=== PATIENT | female | born 1990 | race Caucasian/White ===

== ENCOUNTER → 2020-05-03 14:27 | Outpatient (BNVA) | payer OTHER, SELFPAY | PROVIDERS: PCP Internal Medicine; Visit Provider Advanced Practice Midwife | DX: Z76.89 Persons encountering health services in other specified circumstances (principal) ==

== ENCOUNTER 2020-05-29 13:13 | Outpatient (REF) | payer OTHER, SELFPAY ==
[2020-05-30 12:07] LABS: BV Int Neg Control Negative (Negative); BV Int Pos Control Positive (Positive)
[2020-06-01 18:52] LABS: C. trachomatis RNA TMA NOT DETECTED (NOT DETECTED); N. gonorrhoeae RNA TMA NOT DETECTED (NOT DETECTED)
== END 2020-05-29 13:14 | disposition home or self-care (01) ==
LOC: HO.LAB 13:13
PROVIDERS: PCP Internal Medicine; Visit Provider Advanced Practice Midwife
DX: Z01.419 Encounter for gynecological examination (general) (routine) without abnormal findings (principal); Z20.2 Contact with and (suspected) exposure to infections with a predominantly sexual mode of transmission
CPT/HCPCS: 36415; 87480; 87491; 87510; 87591; 87660

== ENCOUNTER 2020-07-10 12:58 | Emergency (ER) | payer OTHER, SELFPAY ==
--- NOTE | ~2020-07-10 | XR_ITS ---
EXAMINATION: CHEST 1 VIEW CLINICAL INFORMATION: Productive cough. COMPARISON: February 15, 2016. TECHNIQUE: An AP view of the chest is provided. FINDINGS: The cardiac silhouette is not enlarged. The mediastinal and hilar contours are unremarkable. There are neither pleural effusions nor pneumothoraces. There are no consolidations. The osseous structures are stable. XR/XR chest 1V IMPRESSION: No evidence for acute disease.
[2020-07-10 15:14] VITALS: BP 140/68; PULSE 64; RESP 18; TEMP 37.3; O2SAT 100; BMI 30.2
--- NOTE | 2020-07-10 15:48 | ED.GENADULT ---
HPI - General Adult General Chief complaint: General Medical <BERTA Wong - Last Filed: 07/10/20 16:53> Stated complaint: covid symptoms <BERTA Wong - Last Filed: 07/10/20 16:53> Time Seen by Provider: 07/10/20 15:17 <BERTA Wong - Last Filed: 07/10/20 16:53> Source: patient <BERTA Wong - Last Filed: 07/10/20 16:53> Mode of arrival: ambulatory <BERTA Wong - Last Filed: 07/10/20 16:53> Limitations: no limitations <BERTA Wong - Last Filed: 07/10/20 16:53> History of Present Illness HPI narrative: 29 y/o female with history of PCOS, active smoker who presents with 1 day history of nausea, diarrhea and productive cough. She reports last night having fever and chills. Her cough is productive of both yellow and clear phelgm. She denies shortness of breath, wheezing, PACHECO. No abdominal pain. Denies sick contacts. <BERTA Wong - Last Filed: 07/10/20 16:53> MD complaint: flu-like symptoms <BERTA Wong - Last Filed: 07/10/20 16:53> Onset (ago): day(s) (1) <BERTA Wong - Last Filed: 07/10/20 16:53> Location: chest <BERTA Wong Last Filed: 07/10/20 16:53> Radiation: non-radiation <BERTA Wong - Last Filed: 07/10/20 16:53> Severity: moderate <BERTA Wong - Last Filed: 07/10/20 16:53> Exacerbating factors: movement <BERTA Wong - Last Filed: 07/10/20 16:53> Associated symptoms: cough, fever/chills, loss of appetite and nausea/vomiting <BERTA Wong Last Filed: 07/10/20 16:53> Treatments prior to arrival: none <BERTA Wong - Last Filed: 07/10/20 16:53> Related Data Home medications: Home Medications Medication Instructions Recorded Confirmed cholecalciferol (vitamin D3) 50 50 mcg PO DAILY 05/03/20 07/20/20 mcg (2,000 unit) capsule metformin 500 mg tablet,extended 500 mg PO BID 05/03/20 07/20/20 release 24 hr sertraline 100 mg tablet 100 mg PO DAILY 05/03/20 07/20/20 spironolactone 25 mg tablet 25 mg PO BID 05/03/20 07/20/20 Previous Rx's Medication Instructions Recorded norethindrone 1.5 mg-ethinyl 1 tab PO DAILY #84 tab 05/03/20 estradiol 30 mcg(21)/iron 75 mg(7) tablet albuterol sulfate 2 inh INHALATION QID PRN #6.7 g 07/10/20 benzonatate [Tessalon Perles] 100 mg PO TID PRN #14 cap 07/10/20 ondansetron HCl [Zofran] 4 mg PO Q8H PRN #10 tab 07/10/20 atorvastatin 20 mg tablet 20 mg PO DAILY 90 Days #90 tab 07/27/20 <BERTA Wong - Last Filed: 07/10/20 16:53> Allergies/adverse reactions: Allergies Allergy/AdvReac Type Severity Reaction Status Date / Time No Known Allergies Allergy Verified 07/20/20 11:07 <BERTA Wong - Last Filed: 07/10/20 16:53> Review of Systems Review of Systems: Constitutional: + Fever,+ Chills ENT/Mouth: No sore throat, No Rhinorrhea, No Swallowing Difficulty Eyes: No Eye Pain, No Swelling, No Redness Cardiovascular: No Chest Pain, No SOB, No Orthopnea, No Edema Respiratory: + Cough, + Sputum, No Wheezing, No dyspnea Gastrointestinal: + Nausea, No Vomiting, + Diarrhea, No abdominal Pain, No Hematochezia, No Melena Genitourinary: No Dysuria, No Urinary Frequency, No Hematuria Musculoskeletal: No joint pain, No Myalgias Neuro: No Weakness, No Numbness, No Dizziness, + Headache Heme/Lymph: No Lymphadenopathy <BERTA Wong Last Filed: 07/10/20 16:53> [facility] Past Medical History Attestation statement: The following information was validated with the patient. <BERTA Wong - Last Filed: 07/10/20 16:53> Medical History: Medical History Depression Oral contraceptive use PCOS (polycystic ovarian syndrome) PTSD (post-traumatic stress disorder) <BERTA Wong - Last Filed: 07/10/20 16:53> Surgical History: Surgical History No history of previous surgery <BERTA Wong - Last Filed: 07/10/20 16:53> Family History Family History: Family History Mother Diabetes mellitus Father No problems noted. Brother Asthma Brother No problems noted. Brother No problems noted. <BERTA Wong - Last Filed: 07/10/20 16:53> Social History Social History: Social History Alcohol intake: current Alcohol intake frequency: holidays/special occasions only Smoking Status: Never smoker Gender identity: female <BERTA Wong Last Filed: 07/10/20 16:53> Physical Exam Vital Signs: Vital Signs: Last Vital Signs Temp 99.1 F 07/10/20 15:14 Pulse 64 07/10/20 15:14 Resp 18 07/10/20 15:14 BP 140/68 H 07/10/20 15:14 Pulse Ox 100 07/10/20 15:14 Body Mass Index 30.2 Appearance: Alert. Oriented X3. No acute distress. Eyes: Pupils equal, round and reactive to light. ENT: Pharynx normal. Neck: Normal inspection. Neck supple. CVS: Normal heart rate and rhythm. Pulses normal. Respiratory: No respiratory distress. Breath sounds normal. Abdomen: Soft and nontender. +BS x4 Skin: Skin warm and dry. Normal skin color. Normal skin turgor. No rashes. Extremities: No lower extremity edema. Neuro: Oriented X 3. No motor deficit. No sensory deficit. <BERTA Wong Last Filed: 07/10/20 16:53> Vital Signs: Last Vital Signs Temp 99.1 F 07/10/20 15:14 Pulse 64 07/10/20 15:14 Resp 18 07/10/20 15:14 BP 140/68 H 07/10/20 15:14 Pulse Ox 100 07/10/20 15:14 Body Mass Index 30.2 <Chidi Alicia MD - Last Filed: 08/01/20 06:46> Course Course Course Narrative: 29 y/o female presenting with nausea, diarrhea, and productive cough. VS are stable and patient appears well. Will check CXR and COVID/viral swab. <BERTA Wong - Last Filed: 07/10/20 16:53> I have reviewed the chart <Chidi Alicia MD - Last Filed: 08/01/20 06:46> Reevaluation(s) Reevaluation #1: CXR and covid are negative. Likely viral syndrome. Will treat symptomatically and with PO zpak given hx bronchitis. Pt counseled. Stable for d/c. <BERTA Wong - Last Filed: 07/10/20 16:53> Medical Decision Making Lab Data Labs: Lab Results 07/10/20 Range/Units 15:32 Coronavirus (PCR) NEGATIVE (Negative) Influenza Type A (PCR) NEGATIVE (Negative) Influenza Type B (PCR) NEGATIVE (Negative) RSV RNA Qual (PCR) NEGATIVE (Negative) <BERTA Wong - Last Filed: 07/10/20 16:53> Lab Results 07/10/20 Range/Units 15:32 Coronavirus (PCR) NEGATIVE (Negative) Influenza Type A (PCR) NEGATIVE (Negative) Influenza Type B (PCR) NEGATIVE (Negative) RSV RNA Qual (PCR) NEGATIVE (Negative) <Chidi Alicia MD - Last Filed: 08/01/20 06:46> Discharge Plan Discharge Clinical Impression: Acute viral syndrome <BERTA Wong - Last Filed: 07/10/20 16:53> Patient Disposition: Home, Self-Care <BERTA Wong - Last Filed: 07/10/20 16:53> Instructions: Viral Syndrome (ED) <BERTA Wong - Last Filed: 07/10/20 16:53> Additional Instructions: Your chest x-ray did not show any evidence of pneumonia. Your COVID test was negative. Your oxygen levels are normal. Recommend rest, no strenuous activity. Stay hydrated. Recommend over the counter Pepto Bismol and/or Imodium as needed for diarrhea. Take the prescribed medications as directed. Follow up with your doctor this week. If you develop shortness of breath, difficulty breathing or any other concerning symptom come back to the ER for further evaluation. <BERTA Wong - Last Filed: 07/10/20 16:53> Prescriptions: New ondansetron HCl [Zofran] 4 mg tablet 4 mg PO Q8H PRN (Reason: nausea and vomiting) Qty: 10 RF: 0 benzonatate [Tessalon Perles] 100 mg capsule 100 mg PO TID PRN (Reason: cough) Qty: 14 RF: 0 albuterol sulfate 90 mcg/actuation HFA aerosol inhaler 2 inh inhalation QID PRN (Reason: shortness of breath or wheezing) Qty: 6.7 RF: 0 No Action atorvastatin 20 mg tablet 20 mg PO DAILY 90 Days Qty: 90 RF: 3 cholecalciferol (vitamin D3) 50 mcg (2,000 unit) capsule 50 mcg PO DAILY RF: 0 metformin 500 mg tablet extended release 24 hr 500 mg PO BID RF: 0 sertraline 100 mg tablet 100 mg PO DAILY RF: 0 spironolactone 25 mg tablet 25 mg PO BID RF: 0 norethindrone-e.estradiol-iron [Junel FE 1.5/30 (28)] 1.5 mg-30 mcg (21)/75 mg (7) tablet 1 tab PO DAILY Qty: 84 RF: 1 <BERTA Wong - Last Filed: 07/10/20 16:53> Interventions: ED Discharge Assessment Last Done: 07/10/20 16:56 <BERTA Wong - Last Filed: 07/10/20 16:53> Discharge Date/Time: 07/10/20 16:57 <BERTA Wong - Last Filed: 07/10/20 16:53>
[2020-07-10 16:48] LABS: Influenza A PCR NEGATIVE (Negative); Influenza B PCR NEGATIVE (Negative); Resp Syncy Virus RNA Qual PCR NEGATIVE (Negative); SARS COV2 PCR INHOUSE NEGATIVE (Negative)
== END 2020-07-10 16:57 | disposition home or self-care (01) ==
PROVIDERS: Physician Assistant; Emergency Provider Emergency Medicine; PCP Internal Medicine
DX: B34.9 Viral infection, unspecified (principal); Z20.822 Contact with and (suspected) exposure to COVID-19; R50.9 Fever, unspecified; F17.210 Nicotine dependence, cigarettes, uncomplicated; E28.2 Polycystic ovarian syndrome; Z79.899 Other long term (current) drug therapy
CPT/HCPCS: 0241U; 36415; 71045; 99283

== ENCOUNTER → 2020-08-30 11:40 | Outpatient (BNVA) | payer OTHER, SELFPAY | PROVIDERS: PCP Internal Medicine; Visit Provider Internal Medicine Endocrinology, Diabetes & Metabolism ==

== ENCOUNTER 2020-10-09 13:07 | Outpatient (REF) | payer OTHER, SELFPAY ==
[2020-10-10 08:58] LABS: BV Int Neg Control Negative (Negative); BV Int Pos Control Positive (Positive)
[2020-10-10 10:55] LABS: CT PCR NOT DETECTED (Not Detect.); NG PCR NOT DETECTED (Not Detect.)
== END 2020-10-09 13:08 | disposition home or self-care (01) ==
LOC: HO.LAB 13:07
PROVIDERS: PCP Internal Medicine; Visit Provider Advanced Practice Midwife
DX: E28.2 Polycystic ovarian syndrome (principal); F17.200 Nicotine dependence, unspecified, uncomplicated; Z20.2 Contact with and (suspected) exposure to infections with a predominantly sexual mode of transmission; Z79.899 Other long term (current) drug therapy; Z79.84 Long term (current) use of oral hypoglycemic drugs; Z30.41 Encounter for surveillance of contraceptive pills
CPT/HCPCS: 87480; 87491; 87510; 87591; 87660; 99212

== ENCOUNTER 2020-12-03 14:04 | Emergency (ER) | payer OTHER, SELFPAY ==
--- NOTE | ~2020-12-03 | XR_ITS ---
EXAMINATION: XR CHEST CLINICAL INFORMATION: Chest pain. COMPARISON: 07/10/20. 02/15/16. TECHNIQUE: Frontal view of the chest was obtained. FINDINGS: No significant abnormality is noted involving the heart, lungs, mediastinum, bony thorax or soft tissues. XR/XR chest 1V IMPRESSION: Unremarkable examination.
[2020-12-03 14:10] VITALS: BP 134/75; PULSE 58; RESP 18; TEMP 37.2; O2SAT 98; BMI 31.7
--- NOTE | 2020-12-03 14:13 | ECG_ITS ---
Test Reason : CHEST PAIN Blood Pressure : / mmHG Vent. Rate : 058 BPM Atrial Rate : 058 BPM P-R Int : 154 ms QRS Dur : 066 ms QT Int : 420 ms P-R-T Axes : 034 020 022 degrees QTc Int : 412 ms Sinus bradycardia Septal infarct , age undetermined Abnormal ECG No previous ECGs available Referred By: Generic ED Physician Electronically Signed By:Nicholas Romo
[2020-12-03 16:18] LABS: MANUAL DIFF FLAG NO
[2020-12-03 16:19] LABS: Basophils Percent Auto 0.6 % (0-2); Eosinophils Absolute Auto 0.1 X10*3/uL (0.0-0.4); Eosinophils Percent Auto 0.8 % (0-4); Hematocrit 47.4 % (37-47); Hemoglobin 15.7 g/dl (12.0-16.0); Imm Gran Abs Auto 0.02 X10*3/uL (0.00-0.03); Imm Gran Pct Auto 0.3 % (0.0-0.4); Lymphocytes Absolute Auto 2.3 X10*3/uL (1.2-4.9); Lymphocytes Percent Auto 32.3 % (20-40); Mean Corpuscular HGB Conc 33.1 g/dl (31.0-35.0); Mean Corpuscular Hemoglobin 31.8 pg (27.0-33.0); Mean Corpuscular Volume 96.1 fL (80-98); Mean Platelet Volume 9.8 fL (9.4-12.3); Monocytes Absolute Auto 0.4 X10*3/uL (0.1-1.2); Neutrophils Absolute Auto 4.3 X10*3/uL (2.0-8.3); Platelet Count 345 X10*3/uL (160-400); Red Blood Count 4.93 X10*6/uL (4.20-5.50); Red Cell Distribution Width 13.1 % (11.0-16.0); White Blood Count 7.1 X10*3/uL (4.8-10.8)
--- NOTE | 2020-12-03 16:27 | ED_ITS ---
HPI - Chest Pain General Chief Complaint: Chest Pain Stated Complaint: chest pain, headache, weakness Time Seen by Provider: 12/03/20 16:27 Source: patient Mode of arrival: ambulatory Limitations: no limitations History of Present Illness HPI narrative: Patient is smoker been feeling congested for last 2 days coughing mostly dry but sometimes mucopurulent phlegm no fever chills feels chest pain when she coughs no other family member sick complaining of mild headache too Related Data Home Medications Medication Instructions Recorded Confirmed sertraline 100 mg tablet 100 mg PO DAILY 05/03/20 10/09/20 Previous Rx's Medication Instructions Recorded albuterol sulfate 2 inh INHALATION QID PRN #6.7 g 07/10/20 benzonatate [Tessalon Perles] 100 mg PO TID PRN #14 cap 07/10/20 ondansetron HCl [Zofran] 4 mg PO Q8H PRN #10 tab 07/10/20 atorvastatin 20 mg tablet 20 mg PO DAILY 90 Days #90 tab 07/27/20 cholecalciferol (vitamin D3) 50 50 mcg PO DAILY 30 Days #30 cap 08/30/20 mcg (2,000 unit) capsule metformin 500 mg tablet,extended 500 mg PO BID 30 Days #60 tab 08/30/20 release 24 hr spironolactone 25 mg tablet 25 mg PO BID 30 Days #60 tab 08/30/20 norethindrone 1.5 mg-ethinyl 1 tab PO DAILY #84 tab 09/25/20 estradiol 30 mcg(21)/iron 75 mg(7) tablet metronidazole 500 mg tablet 500 mg PO BID 7 Days #14 tab 10/10/20 metronidazole 0.75 % vaginal gel 1 appful VAGINAL BEDTIME 5 Days 10/11/20 #70 g amoxicillin-pot clavulanate 1 tab PO BID #20 tab 12/03/20 [Augmentin] Allergies Allergy/AdvReac Type Severity Reaction Status Date / Time No Known Allergies Allergy Verified 12/03/20 14:09 Review of Systems Review of Systems: Yes all other systems are reviewed and are negative PMFSH Past Medical History Medical History Depression Obesity (BMI 30-39.9) Oral contraceptive use PCOS (polycystic ovarian syndrome) Prediabetes PTSD (post-traumatic stress disorder) Vitamin D deficiency Surgical History No history of previous surgery Family History Family History Mother Diabetes mellitus Father No problems noted. Brother Asthma Brother No problems noted. Brother No problems noted. Social History Social History Alcohol intake: current Alcohol intake frequency: holidays/special occasions only Advance Directives: Yes Advance Directives Information Provided: Yes Advance Directives on File: No Patient : No Gender identity: female Physical Exam Vital Signs: Vital Signs: Last Vital Signs Temp 99.0 F 12/03/20 14:10 Pulse 58 12/03/20 14:10 Resp 18 12/03/20 14:10 BP 134/75 12/03/20 14:10 Pulse Ox 98 12/03/20 14:10 Body Mass Index 31.7 Appearance: Alert. Oriented X3. No acute distress. ENT: Pharynx normal. Oral Mucosa moist nasal turbinates inflamed postnasal drip+ Neck: Normal inspection. Neck supple. CVS: Normal heart rate and rhythm. Pulses normal. Respiratory: No respiratory distress. Equal air entry bilateral, no wheezi ng/rales/rhonchi Abdomen: Soft and nontender. Skin: Skin warm and dry. Normal skin color. Normal skin turgor. Extremities: No lower extremity edema. Neuro: Oriented X 3. MDM - Chest Pain Lab Data Attestation: I reviewed the patient's lab results. Result diagrams: 12/03/20 16:08 12/03/20 16:08 Labs: Lab Results 12/03/20 12/03/20 12/03/20 Range/Units 16:08 16:08 16:08 WBC 7.1 (4.8-10.8) X10*3/uL RBC 4.93 (4.20-5.50) X10*6/uL Hgb 15.7 (12.0-16.0) g/dl Hct 47.4 H (37-47) % MCV 96.1 (80-98) fL MCH 31.8 (27.0-33.0) pg MCHC 33.1 (31.0-35.0) g/dl RDW 13.1 (11.0-16.0) % Plt Count 345 (160-400) X10*3/uL MPV 9.8 (9.4-12.3) fL Immature Gran % (Auto) 0.3 (0.0-0.4) % Neut % (Auto) 60.0 (45-73) % Lymph % (Auto) 32.3 (20-40) % [place] % (Auto) 6.0 (2-11) % Eos % (Auto) 0.8 (0-4) % Baso % (Auto) 0.6 (0-2) % Lymph # (Auto) 2.3 (1.2-4.9) X10*3/uL [place] # (Auto) 0.4 (0.1-1.2) X10*3/uL Eos # (Auto) 0.1 (0.0-0.4) X10*3/uL Baso # (Auto) 0.0 (0.0-0.2) X10*3/uL Abs Immat Gran (auto) 0.02 (0.00-0.03) X10*3/uL Absolute Neuts (auto) 4.3 (2.0-8.3) X10*3/uL Absolute Nucleated RBC 0.000 (0.0-0.012) X10*3/uL Nucleated RBC % (auto) 0.0 (0.0-0.2) /100WBC Sodium 141 (135-145) mmol/L Potassium 4.2 (3.3-5.1) mmol/L Chloride 107 (96-108) mmol/L Carbon Dioxide 25 (22-29) mmol/L Anion Gap 13 (12-20) BUN 11 (9-16) mg/dL Creatinine 0.95 (0.5-1.4) mg/dL Estim Creat Clear Calc 81.6 Estimated GFR > 60 Random Glucose 95 (60-115) mg/dL Calcium 9.9 (8.4-10.2) mg/dL Troponin I High Sens < 3.5 (<3.5-17.0) ng/L S. pyogenes GrpA FRANTZ (Negative) 12/03/20 Range/Units 16:39 WBC (4.8-10.8) X10*3/uL RBC (4.20-5.50) X10*6/uL Hgb (12.0-16.0) g/dl Hct (37-47) % MCV (80-98) fL MCH (27.0-33.0) pg MCHC (31.0-35.0) g/dl RDW (11.0-16.0) % Plt Count (160-400) X10*3/uL MPV (9.4-12.3) fL Immature Gran % (Auto) (0.0-0.4) % Neut % (Auto) (45-73) % Lymph % (Auto) (20-40) % [place] % (Auto) (2-11) % Eos % (Auto) (0-4) % Baso % (Auto) (0-2) % Lymph # (Auto) (1.2-4.9) X10*3/uL [place] # (Auto) (0.1-1.2) X10*3/uL Eos # (Auto) (0.0-0.4) X10*3/uL Baso # (Auto) (0.0-0.2) X10*3/uL Abs Immat Gran (auto) (0.00-0.03) X10*3/uL Absolute Neuts (auto) (2.0-8.3) X10*3/uL Absolute Nucleated RBC (0.0-0.012) X10*3/uL Nucleated RBC % (auto) (0.0-0.2) /100WBC Sodium (135-145) mmol/L Potassium (3.3-5.1) mmol/L Chloride (96-108) mmol/L Carbon Dioxide (22-29) mmol/L Anion Gap (12-20) BUN (9-16) mg/dL Creatinine (0.5-1.4) mg/dL Estim Creat Clear Calc Estimated GFR Random Glucose (60-115) mg/dL Calcium (8.4-10.2) mg/dL Troponin I High Sens (<3.5-17.0) ng/L S. pyogenes GrpA FRANTZ Negative (Negative) Discharge Plan Discharge Clinical Impression: Acute bronchitis Qualifiers: Bronchitis organism: unspecified organism Qualified Code(s): J20.9 - Acute bronchitis, unspecified Patient Disposition: Home, Self-Care Instructions: Acute Bronchitis (ED) Additional Instructions: Take antibiotic as advised. Stop smoking Prescriptions: New amoxicillin-pot clavulanate [Augmentin] 875-125 mg tablet 1 tab PO BID Qty: 20 RF: 0 No Action atorvastatin 20 mg tablet 20 mg PO DAILY 90 Days Qty: 90 RF: 3 norethindrone-e.estradiol-iron [Junel FE 1.5/30 (28)] 1.5 mg-30 mcg (21)/75 mg (7) tablet 1 tab PO DAILY Qty: 84 RF: 1 metronidazole [Flagyl] 500 mg tablet 500 mg PO BID 7 Days Qty: 14 RF: 0 metronidazole [Metrogel Vaginal] 0.75 % gel 1 appful vaginal BEDTIME 5 Days Qty: 70 RF: 0 ondansetron HCl [Zofran] 4 mg tablet 4 mg PO Q8H PRN (Reason: nausea and vomiting) Qty: 10 RF: 0 benzonatate [Tessalon Perles] 100 mg capsule 100 mg PO TID PRN (Reason: cough) Qty: 14 RF: 0 albuterol sulfate 90 mcg/actuation HFA aerosol inhaler 2 inh inhalation QID PRN (Reason: shortness of breath or wheezing) Qty: 6.7 RF: 0 sertraline 100 mg tablet 100 mg PO DAILY RF: 0 metformin 500 mg tablet extended release 24 hr 500 mg PO BID 30 Days Qty: 60 RF: 6 spironolactone 25 mg tablet 25 mg PO BID 30 Days Qty: 60 RF: 6 cholecalciferol (vitamin D3) 50 mcg (2,000 unit) capsule 50 mcg PO DAILY 30 Days Qty: 30 RF: 6
[2020-12-03 16:39] LABS: Anion Gap 13 (12-20); Blood Urea Nitrogen 11 mg/dL (9-16); Calcium 9.9 mg/dL (8.4-10.2); Carbon Dioxide 25 mmol/L (22-29); Chloride 107 mmol/L (96-108); Creatinine Clr Calc Pharmacy 81.6; Estimated Glomerular Filt Rate > 60; Glucose Random 95 mg/dL (60-115); Potassium 4.2 mmol/L (3.3-5.1); Sodium 141 mmol/L (135-145)
[2020-12-03] MEDS: guaiFEN/Codeine SF 200/20/10ML 10 ML LIQUID PO (16:42)
[2020-12-03] MEDS: Amoxicillin/Potassium Clav 875 MG TABLET PO (16:42)
[2020-12-03 16:47] LABS: Troponin-I High Sensitivity < 3.5 ng/L (<3.5-17.0)
[2020-12-03 16:50] LABS: IDNOW Serial# 9DD0AD1C
[2020-12-03 16:51] LABS: Strep A Nucleic Acid Negative (Negative)
== END 2020-12-03 17:06 | disposition home or self-care (01) ==
PROVIDERS: Emergency Provider Internal Medicine; PCP Internal Medicine
DX: J20.9 Acute bronchitis, unspecified (principal); R07.9 Chest pain, unspecified; Z79.899 Other long term (current) drug therapy
CPT/HCPCS: 36415; 71045; 80048; 84484; 85025; 87651; 93005; 99283

== ENCOUNTER 2020-12-04 16:45 | Emergency (ER) | payer OTHER, SELFPAY ==
[2020-12-04 17:54] VITALS: BP 112/68; PULSE 52; RESP 18; TEMP 37.1; O2SAT 100; BMI 30.4
--- NOTE | 2020-12-04 18:18 | ED_ITS ---
HPI - URI/Sore Throat General Chief Complaint: General Medical Stated Complaint: Fever Time Seen by Provider: 12/04/20 17:37 Source: patient Mode of arrival: ambulatory Limitations: no limitations History of Present Illness MD elicited complaint: fever, cough, sore throat, rhinorrhea and nasal congestion Onset (ago): day(s) (4 days ) Consistency: constant and progressively worsening Severity: moderate Description of mucous: clear, watery and yellow Able to tolerate fluids by mouth: Yes Exacerbating factors: swallowing Relieving factors: nothing Associated symptoms: denies other symptoms Treatments prior to arrival: antibiotics (Seen here yesterday and prescribe augmented taking as prescribed) Related Data Home Medications Medication Instructions Recorded Confirmed sertraline 100 mg tablet 100 mg PO DAILY 05/03/20 10/09/20 Previous Rx's Medication Instructions Recorded albuterol sulfate 2 inh INHALATION QID PRN #6.7 g 07/10/20 benzonatate [Tessalon Perles] 100 mg PO TID PRN #14 cap 07/10/20 ondansetron HCl [Zofran] 4 mg PO Q8H PRN #10 tab 07/10/20 atorvastatin 20 mg tablet 20 mg PO DAILY 90 Days #90 tab 07/27/20 cholecalciferol (vitamin D3) 50 50 mcg PO DAILY 30 Days #30 cap 08/30/20 mcg (2,000 unit) capsule metformin 500 mg tablet,extended 500 mg PO BID 30 Days #60 tab 08/30/20 release 24 hr spironolactone 25 mg tablet 25 mg PO BID 30 Days #60 tab 08/30/20 norethindrone 1.5 mg-ethinyl 1 tab PO DAILY #84 tab 09/25/20 estradiol 30 mcg(21)/iron 75 mg(7) tablet metronidazole 500 mg tablet 500 mg PO BID 7 Days #14 tab 10/10/20 metronidazole 0.75 % vaginal gel 1 appful VAGINAL BEDTIME 5 Days 10/11/20 #70 g amoxicillin-pot clavulanate 1 tab PO BID #20 tab 12/03/20 [Augmentin] acetaminophen-codeine 1 tab PO Q8H PRN #10 tab 12/04/20 Allergies Allergy/AdvReac Type Severity Reaction Status Date / Time No Known Allergies Allergy Verified 12/03/20 14:09 Review of Systems Review of Systems: Constitutional : Positive subjective fevers/chi lls/fatigue/malaise ENT/Mouth : Positive sore throat/runny nose Eyes: No Discharge Cardiovascular : No Chest Pain, No SOB Respiratory : Positive Cough, No Sputum, No Wheezing, No Smoke Exposure, No D yspnea Gastrointestinal : No Nausea, No Vomiting, No Diarrhea Genitourinary : No irregular bleeding, No Dysuria, No Urinary Frequency, No Hematuria, No Urinary Incontinence, No Urgency, No Flank Pain, Musculoskeletal : No Myalgia Skin : No rash Neuro : No Headache Yes all other systems are reviewed and are negative [facility] Past Medical History Attestation statement: The following information was validated with the patient. Medical History Depression Obesity (BMI 30-39.9) Oral contraceptive use PCOS (polycystic ovarian syndrome) Prediabetes PTSD (post-traumatic stress disorder) Vitamin D deficiency Surgical History No history of previous surgery Family History Family History Mother Diabetes mellitus Father No problems noted. Brother Asthma Brother No problems noted. Brother No problems noted. Social History Social History Alcohol intake: current Alcohol intake frequency: holidays/special occasions only Advance Directives: No Advance Directives Information Provided: Yes Patient : No Gender identity: female Physical Exam Vital Signs: Vital Signs: Last Vital Signs Temp 98.8 F 12/04/20 17:54 Pulse 52 12/04/20 17:54 Resp 18 12/04/20 17:54 BP 112/68 12/04/20 17:54 Pulse Ox 100 12/04/20 17:54 Body Mass Index 30.4 vital signs have been reviewed as normal and appeared to be correct. Blood pressure normal. Heart rate normal. Respiration rate normal. Temperature normal. Oxygen saturation normal. Appearance: Alert. Oriented X3. No acute distress. Head: Normal external exam. Normocephalic. Atraumatic. Eyes: PERRLA. EOMI. Conjunctiva and sclera normal. Eyelids normal. ENT: EAC normal. TM's Normal. Posterior pharynx mildly erythematous no exudate is noted. Uvula midline. Moist mucous membranes. No trismus noted. No drooling noted. No muffled voice noted. Not consistent with peritonsillar abscess/pharyngeal abscess. Neck: Normal inspection. Neck supple. FROM. No adenopathy. Thyroid Normal. No meningeal signs. No neck mass noted. CVS: Normal heart rate and rhythm. Heart sound normal. Pulses normal throughout. No murmurs/rales/gallops. Respiratory: No respiratory distress. Painless inspiration. Breath sounds normal. No wheezes/rales/rhonchi noted. Chest nontender. No accessory muscle usage noted or decreased air movement noted. Back: Full range of motion noted. No rashes/lesion/induration/fluctuance or signs of infection noted. Skin: Skin warm and dry. Normal skin color. Normal skin turgor. No rashes/lesions/lacerations noted. Extremities: Extremities exhibit normal range of motion. Extremities nontender. Neuro: Oriented X 3. No motor deficit. No sensory deficit. Reflexes normal. Normal steady gait. No focal neuro deficits noted. Vascular: + radial pulses/+ 2 distal pedal pulses/+2 dorsalis pedis b/l. Normal cap refill. No cyanosis noted to upper extremity nails and lower extremity toes nails. Course Course Course Narrative: 30-year-old female presenting to the ED with complaints of URI symptoms for the past 4 days worse today despite being seen yesterday and having a full workup and being placed on Augmentin. Will obtain a repeat rapid strep and swab for COVID/RSV and flu. Treat with Decadron and Tylenol with codeine and instructions to return if any new or worsening symptoms to continue taking the antibiotics as prescribed yesterday. Patient understands agrees with this plan. MDM - URI/Sore Throat Medical Records Attestation: I reviewed the patient's medical records. Lab Data Attestation: I reviewed the patient's lab results. Discharge Plan Discharge Clinical Impression: Upper respiratory infection Patient Disposition: Home, Self-Care Instructions: Upper Respiratory Infection (ED) Additional Instructions: Based on your symptoms and history we have sent a COVID-19. Although your RESULT IS PENDING at this time. RESULTS should return within 2-4 hours. At this time you will be contacted with either NEGATIVE OR POSITIVE results. -Please wait until we contact you for your results. At this time you will be okay for discharge. Please plan for self quarantine for up to 14 days. Do not expose yourself to others. You may not go to work. If testing does come back negative you may return to activities as long as you are no longer having any symptoms for at least 3 days. Please continue to follow cold instructions and wash your hands frequently. You may take Tylenol as directed on the bottle for pain or fever. Patient seen in the emergency department on 12/04/2020 and should be excused from work until negative test results AND until 72 hours without any symptoms AND at least 10 days have passed since symptoms first appeared or since last exposure to COVID-19 positive patient CDC Guidelines for home isolation: - Stay away from others - WEAR A MASK if you are sick AND STAY HOME - Cover your mouth and nose with a tissue when you cough or sneeze. Dispose of tissues in a lined trash can and wash your hands immediately with soap and water for at least 20 seconds. If soap and water are not available, clean hands with alcohol-based hand unit operator that contains at least 60% alcohol. - Clean your hands often with soap and water for at least 20 seconds - Avoid touching your eyes, nose and mouth with unwashed hands - Do not share dishes, drinking glasses, cups, eating utensils, towels, or bedding with other people in your home. After using these items, wash them thoroughly with soap and water or put in the delicatessen slicer. - Clean high-touch surfaces in your isolation area ( sick room and bathroom) every day; let a caregiver clean and disinfect high-touch surfaces in other areas of the home. Clean the area or item with soap and water or another detergent if it is dirty. Then, use a household disinfectant. - Limit contact with pets and animals: If you must care for a pet, wash your hands before and after interacting with them). Prescriptions: New acetaminophen-codeine 300-30 mg tablet 1 tab PO Q8H PRN (Reason: pain) Qty: 10 RF: 0 No Action atorvastatin 20 mg tablet 20 mg PO DAILY 90 Days Qty: 90 RF: 3 norethindrone-e.estradiol-iron [Junel FE .10/15 (28)] 1.5 mg-30 mcg (21)/75 mg (7) tablet 1 tab PO DAILY Qty: 84 RF: 1 metronidazole [Flagyl] 500 mg tablet 500 mg PO BID 7 Days Qty: 14 RF: 0 metronidazole [Metrogel Vaginal] 0.75 % gel 1 appful vaginal BEDTIME 5 Days Qty: 70 RF: 0 ondansetron HCl [Zofran] 4 mg tablet 4 mg PO Q8H PRN (Reason: nausea and vomiting) Qty: 10 RF: 0 benzonatate [Tessalon Perles] 100 mg capsule 100 mg PO TID PRN (Reason: cough) Qty: 14 RF: 0 albuterol sulfate 90 mcg/actuation HFA aerosol inhaler 2 inh inhalation QID PRN (Reason: shortness of breath or wheezing) Qty: 6.7 RF: 0 amoxicillin-pot clavulanate [Augmentin] 875-125 mg tablet 1 tab PO BID Qty: 20 RF: 0 sertraline 100 mg tablet 100 mg PO DAILY RF: 0 metformin 500 mg tablet extended release 24 hr 500 mg PO BID 30 Days Qty: 60 RF: 6 spironolactone 25 mg tablet 25 mg PO BID 30 Days Qty: 60 RF: 6 cholecalciferol (vitamin D3) 50 mcg (2,000 unit) capsule 50 mcg PO DAILY 30 Days Qty: 30 RF: 6 Referrals: Po,Sami Mclaughlin MD [Primary Care Provider] - 2 days Print Language: Yoruba
[2020-12-04] MEDS: dexAMETHasone 2 MG TABLET 10 MG PO (18:26)
[2020-12-04 19:27] LABS: Strep A Nucleic Acid Negative (Negative)
[2020-12-04 20:02] LABS: Influenza A PCR NEGATIVE (Negative); Influenza B PCR NEGATIVE (Negative); Resp Syncy Virus RNA Qual PCR NEGATIVE (Negative); SARS COV2 PCR INHOUSE NEGATIVE (Negative)
== END 2020-12-04 18:33 | disposition home or self-care (01) ==
PROVIDERS: Physician Assistant Medical; Emergency Provider Internal Medicine; PCP Internal Medicine
DX: J06.9 Acute upper respiratory infection, unspecified (principal); Z20.822 Contact with and (suspected) exposure to COVID-19
CPT/HCPCS: 0241U; 36415; 87651; 99283; J8540

== ENCOUNTER 2021-01-23 12:05 | Outpatient (REF) | payer OTHER, SELFPAY ==
[2021-01-23 14:04] LABS: Alanine Aminotransferase 45 U/L (0-31); Albumin Level 4.8 g/dL (3.5-5.0); Alkaline Phosphatase 64 U/L (39-117); Anion Gap 14 (12-20); Aspartate Amino Transferase 24 U/L (5-31); Bilirubin Total 0.8 mg/dL (0.0-1.0); Blood Urea Nitrogen 13 mg/dL (9-16); Calcium 9.9 mg/dL (8.4-10.2); Carbon Dioxide 25 mmol/L (22-29); Chloride 106 mmol/L (96-108); Cholesterol 136 mg/dL; Estimated Glomerular Filt Rate > 60; Glucose Fasting 95 mg/dL (60-99); HDL Cholesterol 40 mg/dL; LDL Cholesterol Calculated 83 mg/dl; Potassium 4.5 mmol/L (3.3-5.1); Sodium 140 mmol/L (135-145); Total Protein 7.1 g/dL (6.5-8.0); Triglycerides 69 mg/dL
[2021-01-27 12:17] LABS: Vitamin D 25-OH, D2 <4 ng/mL; Vitamin D 25-OH, D3 36 ng/mL; Vitamin D 25-OH, Total 36 ng/mL (30-100)
== END 2021-01-23 12:06 | disposition home or self-care (01) ==
LOC: HO.LAB 12:05
PROVIDERS: PCP Internal Medicine; Visit Provider Internal Medicine
DX: E78.5 Hyperlipidemia, unspecified (principal); E55.9 Vitamin D deficiency, unspecified; E28.2 Polycystic ovarian syndrome
CPT/HCPCS: 36415; 80053; 80061; 82306

== ENCOUNTER 2021-05-31 14:03 | Outpatient (REF) | payer MEDICARE, MEDICAID, SELFPAY ==
[2021-06-01 13:14] LABS: CT PCR NOT DETECTED (Not Detect.); NG PCR NOT DETECTED (Not Detect.)
[2021-06-01 14:22] LABS: BV Int Neg Control Negative (Negative); BV Int Pos Control Positive (Positive)
== END 2021-05-31 14:04 | disposition home or self-care (01) ==
LOC: HO.LAB 14:03
PROVIDERS: Visit Provider Advanced Practice Midwife
DX: Z13.89 Encounter for screening for other disorder (principal)
CPT/HCPCS: 87480; 87491; 87510; 87591; 87660; 99212

== ENCOUNTER 2021-05-31 14:51 | Outpatient (REF) | payer MEDICARE, MEDICAID, SELFPAY ==
[2021-06-01 08:22] LABS: HBc Num1 0.08 S/CO (0.00-0.79); HIV AB/AG Nonreactive (Nonreactive); HIV Num 1 0.07 S/CO (0.00-0.99); Hepatitis B Core Antibody Nonreactive (Nonreactive); ~HepC Num1 0.08 S/CO (0.00-0.79); ~Hepatitis C Antibody Nonreactive (Nonreactive)
[2021-06-01 08:32] LABS: Syphilis Screen Nonreactive (Nonreactive)
== END 2021-05-31 14:52 | disposition home or self-care (01) ==
LOC: HO.LAB 14:51
PROVIDERS: PCP Internal Medicine; Visit Provider Advanced Practice Midwife
DX: Z11.4 Encounter for screening for human immunodeficiency virus [HIV] (principal); Z20.2 Contact with and (suspected) exposure to infections with a predominantly sexual mode of transmission
CPT/HCPCS: 36415; 86704; 86780; 86803; 87389; 87480; 87491; 87510; 87591; 87660; 99212

== ENCOUNTER 2021-07-10 18:01 | Emergency (ER) | payer MEDICARE, MEDICAID, SELFPAY ==
--- NOTE | ~2021-07-10 | CT_ITS ---
EXAMINATION: CT ABDOMEN AND PELVIS WITHOUT CONTRAST CLINICAL INFORMATION: Back and flank pain. COMPARISON: Pelvic ultrasound dated from 06/16/2019. Abdominal ultrasound dated from 02/29/2016. CT abdomen dated from 12/26/2015. TECHNIQUE: Multidetector volumetric imaging was performed from the superior aspect of the liver through the pubic symphysis. Sagittal and coronal reformatted images were obtained on the technologist's workstation. This CT examination was performed using dose optimization techniques as appropriate, variously including the following: *Automated exposure control *Adjustment of mA and/or kV according to patient size (this includes techniques or standardized protocols for targeted exams where dose is matched to indication/reason for exam; i.e. extremities or head) *Use of iterative reconstruction technique DLP: 599 mGy-cm FINDINGS: LUNG BASES: The visualized lung bases are unremarkable. LIVER, GALLBLADDER, AND BILIARY TREE: The liver is normal in size, shape, and attenuation. No focal hepatic lesion or biliary ductal dilatation is present. The gallbladder is unremarkable with no evidence of radiopaque gallstones, gallbladder wall thickening, or obvious pericholecystic inflammatory changes. PANCREAS: Unremarkable. SPLEEN: Unremarkable. ADRENAL GLANDS: Unremarkable. KIDNEYS AND URETERS: The kidneys are normal in size, shape, and attenuation. Punctate calculus in the upper pole of the right kidney (4:316). No hydronephrosis or hydroureter. No perinephric stranding. BLADDER: Underdistended limiting assessment of wall thickening. No intraluminal calculi or perivesical fat stranding. GASTROINTESTINAL TRACT: The small and large bowel are unremarkable. The appendix is unremarkable. ABDOMINAL WALL: No significant hernia is appreciated. LYMPH NODES: Normal. VASCULAR: Unremarkable. PELVIC VISCERA: Enlarged but symmetric ovaries, possibly related with history of polycystic ovarian syndrome. 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 No acute or aggressive appearing osseous abnormalities. CT/CT abdomen pelvis wo con IMPRESSION: Punctate calculus in the upper pole of the right kidney without evidence of hydronephrosis. Enlarged ovaries likely related with history of polycystic ovarian syndrome.
[2021-07-10 19:22] VITALS: BP 181/100; PULSE 62; RESP 18; TEMP 36.6; O2SAT 98; BMI 34.0
[2021-07-10 19:38] LABS: MANUAL DIFF FLAG NO
[2021-07-10 19:41] LABS: Basophils Absolute Auto 0.1 X10*3/uL (0.0-0.2); Basophils Percent Auto 0.5 % (0-2); Eosinophils Absolute Auto 0.2 X10*3/uL (0.0-0.4); Eosinophils Percent Auto 1.4 % (0-4); Hematocrit 49.6 % (37.0-47.0); Hemoglobin 16.3 g/dl (12.0-16.0); Imm Gran Abs Auto 0.03 X10*3/uL (0.00-0.03); Imm Gran Pct Auto 0.3 % (0.0-0.4); Lymphocytes Absolute Auto 2.9 X10*3/uL (1.2-4.9); Lymphocytes Percent Auto 27.8 % (20-40); Mean Corpuscular HGB Conc 32.9 g/dl (31.0-35.0); Mean Corpuscular Hemoglobin 31.3 pg (27.0-33.0); Mean Corpuscular Volume 95.2 fL (80.0-98.0); Mean Platelet Volume 9.6 fL (9.4-12.3); Monocytes Percent Auto 9.1 % (2-11); Neutrophils Absolute Auto 6.4 x10*3/uL (2.0-8.3); Neutrophils Percent Auto 60.9 % (45-73); Platelet Count 342 X10*3/uL (160-400); Red Blood Count 5.21 X10*6/uL (4.20-5.50); Red Cell Distribution Width 12.5 % (11.0-16.0); White Blood Count 10.5 X10*3/uL (4.8-10.8)
[2021-07-10 19:42] LABS: Appearance Urine CLEAR; Color Urine YELLOW; Glucose Urine UA NEG (NEG); Leukocyte Esterase Urine TRACE (NEG); Nitrite Urine NEG (NEG); Specific Gravity - Urine 1.025 (1.005-1.025); UACC Culture Trigger YES; Urine Blood NEG (NEG); Urine Ketones NEG (NEG); Urine Protein NEG (NEG-TRACE)
[2021-07-10 19:48] LABS: UPreg QC Valid YES; Urine Pregnancy NEGATIVE (NEGATIVE)
[2021-07-10 19:50] LABS: RBC Urine 0 /HPF (0); Squamous Epithelial Cell Urine 1+ /LPF
[2021-07-10 19:51] LABS: Bacteria Urine TRACE /LPF; Calcium Oxalate Crystals Urine 1+ /LPF
[2021-07-10 19:56] LABS: COVID-19 Test Negative (Negative)
[2021-07-10 19:57] LABS: Alanine Aminotransferase 42 U/L (0-31); Albumin Level 5.1 g/dL (3.5-5.0); Alkaline Phosphatase 63 U/L (39-117); Anion Gap 12 (12-20); Aspartate Amino Transferase 20 U/L (5-31); Bilirubin Total 0.7 mg/dL (0.0-1.0); Blood Urea Nitrogen 8 mg/dL (9-16); Calcium 10.3 mg/dL (8.4-10.2); Carbon Dioxide 29 mmol/L (22-29); Chloride 105 mmol/L (96-108); Creatinine Clr Calc Pharmacy 80.3; Estimated Glomerular Filt Rate > 60; Glucose Random 97 mg/dL (60-115); Potassium 4.4 mmol/L (3.3-5.1); Sodium 142 mmol/L (135-145); Total Protein 8.1 g/dL (6.5-8.0)
--- NOTE | 2021-07-10 20:44 | ED.ABDPAIN ---
HPI - Abdominal Pain General Chief Complaint: Abdominal Pain Stated Complaint: fever/abd pain and weakness Time Seen by Provider: 07/10/21 20:40 Source: patient Mode of arrival: ambulatory Limitations: no limitations History of Present Illness HPI narrative: 29-year-old female past medical history significant for PCOS, hirsutism, hyperandrogenism, active daily smoker presents to emergency department with complaints of subjective fevers, chills, nausea, vomiting, constipation, headache, bilateral flank pain, abdominal pain x3 days. Patient tells me she is unable to keep anything down. She tells me she is vomiting everything she tries to eat or drink. Abdominal pain is diffuse, but mostly to her lower abdomen. No BM in 3 days. Patient also has complaints of bilateral flank/back pain. She tells me this all came on suddenly except the headache. Headache is a boring, dull headache feels like her typical, gradual in onset, no vision changes or dizziness. No head trauma reported. She also reports a thick white she is like vaginal discharge. She tells me she recently completed a treatment of bacterial vaginosis which she was diagnosed by her OBGYN, she took metronidazole intravaginal suppositories. She tells me since then she has been having thick white discharge. No concerns for STDs. She does report urinary frequency, urgency and dysuria. She denies chest pain, shortness of breath, recent sick contacts. MD elicited complaint: abdominal pain Pertinent past history: none Onset (ago): day(s) (3) Pain Consistency: constant Location: diffuse Severity: severe Quality: aching Radiation: none Migration to: no migration Exacerbating factors: nothing Relieving factors: nothing Associated symptoms: nausea, vomiting, fever, chills and constipation Related Data Previous Rx's Medication Instructions Recorded albuterol sulfate 90 mcg/actuation 2 inh INHALATION QID PRN #6.7 g 07/10/20 aerosol inhaler atorvastatin 20 mg tablet 20 mg PO DAILY 90 Days #90 tab 07/27/20 metformin 500 mg tablet,extended 500 mg PO BID 30 Days #60 tab 08/30/20 release 24 hr cholecalciferol (vitamin D3) 50 50 mcg PO DAILY 90 Days #90 cap 01/23/21 mcg (2,000 unit) capsule metronidazole 0.75 % vaginal gel 1 appful VAGINAL BEDTIME 5 Days 07/06/21 (Metrogel Vaginal) #70 g docusate sodium 100 mg capsule 100 mg PO BID #20 cap 07/10/21 (Colace) fluconazole 150 mg tablet 150 mg PO ONCE 1 Days #1 tab 07/10/21 ondansetron 4 mg disintegrating 4 mg PO ONCE PRN #10 tab 07/10/21 tablet sennosides 8.6 mg tablet (senna) 8.6 mg PO BEDTIME #14 tab 07/10/21 Allergies Allergy/AdvReac Type Severity Reaction Status Date / Time No Known Allergies Allergy Verified 07/10/21 19:22 Review of Systems Review of Systems Constitutional : No Weight loss, + Fever, N+o Chills, + Fatigue, + Malaise ENT/Mouth : No sore throat, No Rhinorrhea Eyes: No Eye Pain, No Swelling, No Redness Cardiovascular : No Chest Pain, No SOB, No Dyspnea on Exertion, No Orthopnea, No Edema, No Palpitations Respiratory : No Cough, No Sputum, No Wheezing Gastrointestinal : + Nausea, + Vomiting, No Diarrhea, + Constipation, + abdominal Pain, No Hematochezia, No Melena Genitourinary : + Dysuria, + Urinary Frequency, No Hematuria, Musculoskeletal : + joint pain, No Myalgias, No Joint Swelling Skin : No Skin Lesions, No rash Neuro : No Weakness, No Numbness, No Dizziness, No Headache Psych : No Anxiety/Panic, No Depression All other systems reviewed and are negative Yes all other systems are reviewed and are negative [facility] Past Medical History Attestation statement: The following information was validated with the patient. Source: old records reviewed and nursing notes reviewed Medical History (Updated 07/10/21 @ 22:49 by BERTA Matias) Depression Hyperandrogenism Obesity (BMI 30-39.9) Oral contraceptive use PCOS (polycystic ovarian syndrome) Prediabetes PTSD (post-traumatic stress disorder) Pure hypercholesterolemia Smoking Vitamin D deficiency Surgical History No history of previous surgery Family History Family History Mother Diabetes mellitus Substance use disorder Mental health disorder Father No problems noted. Brother Asthma Brother No problems noted. Brother No problems noted. Social History Social History (Updated 05/31/21 @ 14:10 by DAISY Hernandez Housing: Apartment Alcohol intake: former Patient Tobacco Use Status: Current everyday Tobacco user Tobacco use type: Cigarette Cigarettes Per Day: 2 Years Smoked: 15 e-Cigarette/Vaping Use: Never Used Second Hand Smoke Exposure: No Advance Directives: No Advance Directives Information Provided: No service: No Current occupational status: unemployed Gender identity: Female Physical Exam ED Vital Signs: Vital Signs - 24 hr 07/10/21 19:22 07/10/21 20:46 Temperature 97.8 F 98.3 F Pulse Rate 62 99 Respiratory Rate 18 18 Blood Pressure 181/100 H 141/79 H Pulse Oximetry 98 96 BMI result Body Mass Index 34.0 VSS Appearance: Alert.? Oriented X3.? No acute distress.? Head: Normocephalic, atraumatic, no step-offs or deformities Eyes: Pupils equal, round and reactive to light.? ENT: Pharynx normal.? Neck: Normal inspection.? Neck supple.? CVS: Normal heart rate and rhythm.? Pulses normal.? Respiratory: No respiratory distress.? Breath sounds normal.? Abdomen: Soft and + diffusely tender.? Negative Rovsing, McBurney's point, Robertson's. Skin: Skin warm and dry.? Normal skin color.? Normal skin turgor.? Extremities: No lower extremity edema.? No calf ttp. 5/5 strength to bilateral upper and lower extremities Back: No midline tenderness, no C-spine tenderness, full range of motion, no CVA tenderness bilaterally Neuro: Oriented X 3.? No motor deficit.? No sensory deficit. CN 2-12 intact. Normal [id number], [id number]. Normal tandem gait. Course Reevaluation(s) Reevaluation #1: H&H slightly higher than baseline likely secondary to her dehydration. No leukocytosis. CBC with no acute electrolyte abnormalities. Lipase within normal limits. Unlikely pancreatitis. CT of abdomen and pelvis with punctate colliculus in upper pole of the right kidney without evidence of hydronephrosis. Bilateral enlargement of ovaries likely secondary to PCOS. Flu swab pending at this time. Time: 22:44 Reevaluation #2: Influenza negative. At this time likely viral in origin as patient has body aches, chills, abdominal pain with a negative CT scan. At this time advised patient to return with new or worrisome symptoms out when numb on her discharge. Comfortable with discharge home. Time: 23:22 MDM - Abdominal Pain MDM Narrative Medical decision making narrative: 2108 29 yo f pmhx PCOS, hirsutism, hyperandrogenism, active daily smoker presents to emergency department with complaints of subjective fevers, chills, nausea, vomiting, constipation, headache (feels like typical) bilateral flank pain, abdominal pain x3 days. PE significant for diffuse abdominal tenderness. Normoactive bowel sounds. Patient having chills. No signs of acute abdomen, appendicitis or cholecystitis on exam. Plan- labs, imaging, ua Will rule out kidney stones, obstructing uropathy, cystitis, appendicitis although unlikely. Since patient's headache is described as a typical headache, no vision changes, no red flag symptoms no need for imaging of the head at this time. Neuro exam is also nonfocal which is reassuring. Medical Records Attestation: I reviewed the patient's medical records. Lab Data Attestation: I reviewed the patient's lab results. Result diagrams: 07/10/21 19:33 07/10/21 19:33 Labs: Lab Results 07/10/21 07/10/21 07/10/21 Range/Units 19:31 19:31 19:31 WBC (4.8-10.8) X10*3/uL RBC (4.20-5.50) X10*6/uL Hgb (12.0-16.0) g/dl Hct (37.0-47.0) % MCV (80.0-98.0) fL MCH (27.0-33.0) pg MCHC (31.0-35.0) g/dl RDW (11.0-16.0) % Plt Count (160-400) X10*3/uL MPV (9.4-12.3) fL Immature Gran % (Auto) (0.0-0.4) % Neut % (Auto) (45-73) % Lymph % (Auto) (20-40) % [place] % (Auto) (2-11) % Eos % (Auto) (0-4) % Baso % (Auto) (0-2) % Lymph # (Auto) (1.2-4.9) X10*3/uL [place] # (Auto) (0.1-1.2) X10*3/uL Eos # (Auto) (0.0-0.4) X10*3/uL Baso # (Auto) (0.0-0.2) X10*3/uL Abs Immat Gran (auto) (0.00-0.03) X10*3/uL Absolute Neuts (auto) (2.0-8.3) x10*3/uL Absolute Nucleated RBC (0.0-0.012) X10*3/uL Nucleated RBC % (auto) (0.0-0.2) /100WBC Sodium (135-145) mmol/L Potassium (3.3-5.1) mmol/L Chloride (96-108) mmol/L Carbon Dioxide (22-29) mmol/L Anion Gap (12-20) BUN (9-16) mg/dL Creatinine (0.5-1.4) mg/dL Estim Creat Clear Calc Estimated GFR Random Glucose (60-115) mg/dL Calcium (8.4-10.2) mg/dL Total Bilirubin (0.0-1.0) mg/dL AST (5-31) U/L ALT (0-31) U/L Alkaline Phosphatase (39-117) U/L Total Protein (6.5-8.0) g/dL Albumin (3.5-5.0) g/dL Lipase (8-78) U/L Urine Color YELLOW Urine Appearance CLEAR Urine pH 6.0 (5.0-8.0) Ur Specific [place] 1.025 (1.005-1.025) Urine Protein NEG (NEG-TRACE) MG/DL Urine Glucose (UA) NEG (NEG) MG/DL Urine Ketones NEG (NEG) MG/DL Urine Blood NEG (NEG) Urine Nitrite NEG (NEG) Ur Leukocyte Esterase TRACE H (NEG) Urine RBC 0 (0) /HPF Urine WBC 10-14 H (0-4) /HPF Ur Squamous Epith Cells 1+ /LPF Calcium Oxalate Crystal 1+ /LPF Urine Bacteria TRACE /LPF Urine Test NEGATIVE (NEGATIVE) COVID-19 (WILLIAM) Negative (Negative) COVID-19 Clin Com See Note Influenza Type A (FRANTZ) (Negative) Influenza Type B (FRANTZ) (Negative) Influenza A & B Note 07/10/21 07/10/21 07/10/21 Range/Units 19:33 19:33 22:53 WBC 10.5 (4.8-10.8) X10*3/uL RBC 5.21 (4.20-5.50) X10*6/uL Hgb 16.3 H (12.0-16.0) g/dl Hct 49.6 H (37.0-47.0) % MCV 95.2 (80.0-98.0) fL MCH 31.3 (27.0-33.0) pg MCHC 32.9 (31.0-35.0) g/dl RDW 12.5 (11.0-16.0) % Plt Count 342 (160-400) X10*3/uL MPV 9.6 (9.4-12.3) fL Immature Gran % (Auto) 0.3 (0.0-0.4) % Neut % (Auto) 60.9 (45-73) % Lymph % (Auto) 27.8 (20-40) % [place] % (Auto) 9.1 (2-11) % Eos % (Auto) 1.4 (0-4) % Baso % (Auto) 0.5 (0-2) % Lymph # (Auto) 2.9 (1.2-4.9) X10*3/uL [place] # (Auto) 1.0 (0.1-1.2) X10*3/uL Eos # (Auto) 0.2 (0.0-0.4) X10*3/uL Baso # (Auto) 0.1 (0.0-0.2) X10*3/uL Abs Immat Gran (auto) 0.03 (0.00-0.03) X10*3/uL Absolute Neuts (auto) 6.4 (2.0-8.3) x10*3/uL Absolute Nucleated RBC 0.000 (0.0-0.012) X10*3/uL Nucleated RBC % (auto) 0.0 (0.0-0.2) /100WBC Sodium 142 (135-145) mmol/L Potassium 4.4 (3.3-5.1) mmol/L Chloride 105 (96-108) mmol/L Carbon Dioxide 29 (22-29) mmol/L Anion Gap 12 (12-20) BUN 8 L (9-16) mg/dL Creatinine 1.00 (0.5-1.4) mg/dL Estim Creat Clear Calc 80.3 Estimated GFR > 60 Random Glucose 97 (60-115) mg/dL Calcium 10.3 H (8.4-10.2) mg/dL Total Bilirubin 0.7 (0.0-1.0) mg/dL AST 20 (5-31) U/L ALT 42 H (0-31) U/L Alkaline Phosphatase 63 (39-117) U/L Total Protein 8.1 H (6.5-8.0) g/dL Albumin 5.1 H (3.5-5.0) g/dL Lipase 58 (8-78) U/L Urine Color Urine Appearance Urine pH (5.0-8.0) Ur Specific [place] (1.005-1.025) Urine Protein (NEG-TRACE) MG/DL Urine Glucose (UA) (NEG) MG/DL Urine Ketones (NEG) MG/DL Urine Blood (NEG) Urine Nitrite (NEG) Ur Leukocyte Esterase (NEG) Urine RBC (0) /HPF Urine WBC (0-4) /HPF Ur Squamous Epith Cells /LPF Calcium Oxalate Crystal /LPF Urine Bacteria /LPF Urine Test (NEGATIVE) COVID-19 (WILLIAM) (Negative) COVID-19 Clin Com Influenza Type A (FRANTZ) Negative (Negative) Influenza Type B (FRANTZ) Negative (Negative) Influenza A & B Note See Note Critical Care Time Critical Care Time Critical Care Time: No Discharge Plan Discharge Clinical Impression: Gastroenteritis, Chills, Constipation, Candidiasis of vagina Patient Disposition: Home, Self-Care Instructions: Constipation (ED), Gastroenteritis (ED) Additional Instructions: Take your medications as prescribed. If you were prescribed antibiotics today, it is important that you take your medication to their entirety, do not skip any doses, do not finish them early. Follow-up with your primary care provider this week. Return to the emergency department with new or worsening symptoms. In case of emergency call 911 You were treated here with 1 dose of fluconazole for yeast, take 2nd dose if needed in 2 days. Do not take it tomorrow. Your abdominal CT showed punctate stones which means very small kidney stones. They also showed bilateral enlarged ovaries. Prescriptions: New docusate sodium [Colace] 100 mg capsule 100 mg PO BID Qty: 20 0RF sennosides [senna] 8.6 mg tablet 8.6 mg PO BEDTIME Qty: 14 0RF ondansetron 4 mg tablet,disintegrating 4 mg PO ONCE PRN (Reason: nausea and vomiting) Qty: 10 0RF fluconazole 150 mg tablet 150 mg PO ONCE 1 Days Qty: 1 0RF No Action atorvastatin 20 mg tablet 20 mg PO DAILY 90 Days Qty: 90 3RF metronidazole [Metrogel Vaginal] 0.75 % gel 1 appful vaginal BEDTIME 5 Days Qty: 70 0RF albuterol sulfate 90 mcg/actuation HFA aerosol inhaler 2 inh inhalation QID PRN (Reason: shortness of breath or wheezing) Qty: 6.7 0RF cholecalciferol (vitamin D3) 50 mcg (2,000 unit) capsule 50 mcg PO DAILY 90 Days Qty: 90 1RF metformin 500 mg tablet extended release 24 hr 500 mg PO BID 30 Days Qty: 60 6RF Referrals: Ivette Briones MD [Primary Care Provider] - 2 days Stand Alone Forms: Work/School Release
[2021-07-10 20:46] VITALS: BP 141/79; PULSE 99; RESP 18; TEMP 36.8; O2SAT 96
[2021-07-10 21:56] LABS: Lipase 58 U/L (8-78)
[2021-07-10] MEDS: Fluconazole 150 MG TABLET PO (21:56)
[2021-07-10] MEDS: Ketorolac Tromethamine 15 MG/ML VIAL 30 MG IM (22:58)
[2021-07-10 23:13] LABS: IDNOW Serial# 55D5AD1C; Influenza A Negative (Negative); Influenza B2 Negative (Negative)
== END 2021-07-10 23:35 | disposition home or self-care (01) ==
PROVIDERS: Physician Assistant; Emergency Provider Emergency Medicine Emergency Medical Services; PCP Internal Medicine
DX: K52.9 Noninfective gastroenteritis and colitis, unspecified (principal); B37.3 Candidiasis of vulva and vagina; R68.83 Chills (without fever); K59.00 Constipation, unspecified; F17.200 Nicotine dependence, unspecified, uncomplicated; Z20.822 Contact with and (suspected) exposure to COVID-19
CPT/HCPCS: 74176; 80053; 81001; 81025; 83690; 85025; 87086; 87147; 87502; 87635; 96372; 99284; J1885

== ENCOUNTER 2022-01-17 16:16 | Emergency (ER) | payer MEDICARE, MEDICAID, SELFPAY ==
[2022-01-17 16:47] VITALS: BP 157/68; PULSE 90; RESP 19; TEMP 36.9; O2SAT 98; BMI 34.0
[2022-01-17 17:21] LABS: MANUAL DIFF FLAG NO
[2022-01-17 17:26] LABS: Appearance Urine Clear; Color Urine Yellow; Glucose Urine UA Negative (Negative); Leukocyte Esterase Urine Negative (Negative); Nitrite Urine Negative (Negative); Specific Gravity - Urine >= 1.030 (1.005-1.025); Urine Blood Negative (Negative); Urine Ketones >=80 mg/dL (Negative); Urine Protein Trace mg/dL (Neg-Trace)
[2022-01-17 17:29] LABS: UPreg QC Valid YES; Urine Pregnancy NEGATIVE (NEGATIVE)
[2022-01-17 17:35] LABS: Anion Gap 18 (12-20); Blood Urea Nitrogen 11 mg/dL (9-16); Calcium 9.4 mg/dL (8.4-10.2); Carbon Dioxide 22 mmol/L (22-29); Chloride 105 mmol/L (96-108); Creatinine Clr Calc Pharmacy 85.6; Estimated Glomerular Filt Rate > 60; Glucose Random 102 mg/dL (60-115); Sodium 141 mmol/L (135-145)
[2022-01-17 17:41] LABS: Basophils Percent Auto 0.5 % (0-2); Eosinophils Absolute Auto 0.1 X10*3/uL (0.0-0.4); Eosinophils Percent Auto 0.9 % (0-4); Hematocrit 42.9 % (37.0-47.0); Hemoglobin 14.4 g/dl (12.0-16.0); Imm Gran Abs Auto 0.05 X10*3/uL (0.00-0.03); Imm Gran Pct Auto 0.6 % (0.0-0.4); Lymphocytes Percent Auto 24.9 % (20-40); Mean Corpuscular HGB Conc 33.6 g/dl (31.0-35.0); Mean Corpuscular Hemoglobin 31.1 pg (27.0-33.0); Mean Corpuscular Volume 92.7 fL (80.0-98.0); Mean Platelet Volume 9.9 fL (9.4-12.3); Monocytes Absolute Auto 0.6 X10*3/uL (0.1-1.2); Monocytes Percent Auto 6.9 % (2-11); Neutrophils Absolute Auto 5.3 x10*3/uL (2.0-8.3); Neutrophils Percent Auto 66.2 % (45-73); Platelet Count 374 X10*3/uL (160-400); Red Blood Count 4.63 X10*6/uL (4.20-5.50); Red Cell Distribution Width 13.2 % (11.0-16.0); White Blood Count 8.1 X10*3/uL (4.8-10.8)
--- NOTE | 2022-01-17 18:15 | ED_ITS ---
HPI - Female Genitourinary General Chief complaint: Urogenital-Female Stated complaint: fever, chills, bodyaches,nausea Time Seen by Provider: 01/17/22 18:15 Source: patient Mode of arrival: ambulatory Limitations: no limitations History of Present Illness HPI Narrative: Patient is a 31 year old female presenting to the emergency department today with body aches and feeling generally unwell. Patient states that over the last week, she has had body aches and has felt generally unwell. Patient denies any dizziness, lightheadedness, abdominal pain, nausea, vomiting, fever, chills, blurry vision, double vision, loss of vision, chest pain, difficulty breathing, shortness of breath, back pain, night sweats, pain with urination, increased urinary frequency, increased urinary urgency, blood in her urine or stool, syncope or a near syncopal episode, recent trauma or falls, bowel incontinence, bladder incontinence, bowel retention, bladder retention, or any other complaints at this time. Onset (ago): week(s) (1) Severity: mild Severity scale (1-10): 1 Consistency: constant Vaginal discharge: none Vaginal bleeding: none Exacerbating factors: none Relieving factors: none Associated symptoms: denies other symptoms Treatment prior to arrival: none Related Data Previous Rx's Medication Instructions Recorded albuterol sulfate 90 mcg/actuation 2 inh inhalation QID PRN shortness 07/10/20 aerosol inhaler of breath or wheezing #6.7 grams metformin 500 mg tablet,extended 500 mg PO BID 30 days #60 tabs 08/30/20 release 24 hr cholecalciferol (vitamin D3) 50 50 mcg PO DAILY 90 days #90 caps 01/23/21 mcg (2,000 unit) capsule metronidazole 0.75 % (37.5 mg/5 1 appful vaginal BEDTIME 5 days 07/06/21 gram) vaginal gel (Metrogel #70 grams Vaginal) docusate sodium 100 mg capsule 100 mg PO BID #20 caps 07/10/21 (Colace) fluconazole 150 mg tablet 150 mg PO ONCE 1 day #1 tab 07/10/21 ondansetron 4 mg disintegrating 4 mg PO ONCE PRN nausea and 07/10/21 tablet vomiting #10 tabs sennosides 8.6 mg tablet (senna) 8.6 mg PO BEDTIME #14 tabs 07/10/21 atorvastatin 20 mg tablet 20 mg PO DAILY 90 days #90 tabs 10/08/21 Allergies Allergy/AdvReac Type Severity Reaction Status Date / Time No Known Allergies Allergy Verified 07/10/21 19:22 Review of Systems Constitutional: Constitutional: Reports no additional constitutional complai nts, Denies chills, Denies fever(s) and Denies night sweats Eyes: Eyes: Reports no additional eye complaints, Denies blurry vision, Denies change in vision, Denies diplopia, Denies eye discharge, Denies loss of vision and Denies eye pain ENT: Denies dizziness Cardiovascular: Cardiovascular: Reports no additional cardiovascular complaints, Denies chest pain, Denies lightheadedness, Denies Loss of Consciousness and Denies dyspnea Respiratory: Respiratory: Reports no additional respiratory complaints and D enies dyspnea Gastrointestinal: Gastrointestinal: Reports no additional gastrointestinal complaints, Denies abdominal pain, Denies melena, Denies hematochezia, Denies change in bowel habits and Denies change in stool character Genitourinary: Genitourinary: Denies hematuria, Denies urinary frequency, Denies dysuria, Denies urinary incontinence, Denies urinary hesitancy and Denies urinary urgency Musculoskeletal: Musculoskeletal: Reports no additional musculoskeletal complaints, Denies numbness and Denies tingling Neurologic: Denies dizziness, Denies loss of vision, Denies numbness and Denies tingling Psychiatric: Psychiatric: Reports no additional psychiatric complaints Endocrine: Endocrine: Reports no additional endocrine complaints Hematologic/Lymphatic: Hematologic/Lymphatic: Reports no additional hematologic/lymphatic complaints Allergic/Immunologic: Allergic/Immunologic: Reports no additional allergic/immunologic complaints [facility] Past Medical History Attestation statement: The following information was validated with the patient. Source: old records reviewed Medical History Depression Hyperandrogenism Obesity (BMI 30-39.9) Oral contraceptive use PCOS (polycystic ovarian syndrome) Prediabetes PTSD (post-traumatic stress disorder) Pure hypercholesterolemia Smoking Vitamin D deficiency Surgical History No history of previous surgery Family History Family History Mother Diabetes mellitus Substance use disorder Mental health disorder Father No problems noted. Brother Asthma Brother No problems noted. Brother No problems noted. Social History Social History Housing: Apartment Alcohol intake: former Patient Tobacco Use Status: Current everyday Tobacco user Tobacco use type: Cigarette Cigarettes Per Day: 2 Years Smoked: 15 e-Cigarette/Vaping Use: Never Used Second Hand Smoke Exposure: No Advance Directives: No Advance Directives Information Provided: Yes service: No Current occupational status: unemployed Gender identity: Female Physical Exam Vital Signs: Vital Signs: Last Vital Signs Temp 98.5 F 01/17/22 16:47 Pulse 90 01/17/22 16:47 Resp 19 01/17/22 16:47 BP 157/68 H 01/17/22 16:47 Pulse Ox 98 01/17/22 16:47 O2 Del Method 01/17/22 16:47 BMI result Body Mass Index 34.0 Const: General: cooperative, no acute distress, alert and awake Nutritional Appearance: well nourished Orientation/consciousness: patient oriented x3 Limitations: no limitations HEENT: Head: Yes normal to inspection and Yes atraumatic Ears: hearing gr ossly normal bilaterally and external ears normal General nose exam: Normal external nose present, no nasal discharge noted and no epistaxis Face and sinus: Yes normal facial exam, No abrasion and No laceration Mouth: Normal oral and palatal mucosa present, no drooling and no muffled voice Eyes: General: appearance normal, both eyes and all related structures Periorbital: periorbital findings normal Eyelids: Yes eyelids normal Conjunctivae: conjunctivae normal Pupils: Equal, round and reactive pupils present EOM: EOMs intact bilaterally Neck: Neck: Yes normal visual inspection, Yes full ROM and Yes no lymphadenopathy Chest: Chest palpation & inspection: normal inspection of the chest Resp: Effort & Inspection: normal respiratory effort and able to speak in c omplete sentences Auscultation: clear to auscultation bilaterally Cardio: Rate: regular rate Rhythm: regular rhythm GI: Inspection: Yes normal to inspection Palpation (GI): Soft to palpation, not firm, nontender, no guarding and not rigid Neuro: General: patient oriented x3 and moves all extremities Cranial nerves: Yes Equal, round and reactive pupils present Cognition (Neuro): normal cognition Motor exam (neuro): 5/5 motor strength present throughout Sensory Exam: Normal double simultaneous stimulation for sensation Coordination: [id number] test normal Extrem: General: Yes normal to inspection, Yes full ROM and Yes capillary refill normal Psych: Appearance: grossly normal Mental Status: mental status grossly normal Affect: normal affect Attitude: cooperative Thought process: Normal thought process present Thought content: Normal thought content present Insight: Good insight present (Psych) MDM - Female Genitourinary MDM Narrative Medical decision making narrative: Patient is a 31 year old female presenting to the emergency department today feeling generally unwell. Patient's physical exam was unremarkable. Patient's blood work was unremarkable. Patient's urine showed no acute process. I explained my physical exam findings as well as all test results to the patient. I answered all questions asked by the patient. I stressed the importance of the patient taking her medication as prescribed. I stressed the importance of the patient following up with her primary care provider. I stressed the importance of the patient returning to the emergency department immediately if her symptoms were to worsen or if she were to develop any dizziness, shortness of breath, difficulty breathing, chest pain, blurry vision, loss of vision, nausea, vomiting, abdominal pain, fever, chills, back pain, or any other complaints. Patient verbalized agreement and understanding with this treatment plan and discharge. Medical Records Attestation: I reviewed the patient's medical records. Lab Data Attestation: I reviewed the patient's lab results. Result diagrams: 01/17/22 17:04 01/17/22 17:05 Labs: Lab Results 01/17/22 01/17/22 01/17/22 Range/Units 17:04 17:04 17:04 WBC 8.1 (4.8-10.8) X10*3/uL RBC 4.63 (4.20-5.50) X10*6/uL Hgb 14.4 (12.0-16.0) g/dl Hct 42.9 (37.0-47.0) % MCV 92.7 (80.0-98.0) fL MCH 31.1 (27.0-33.0) pg MCHC 33.6 (31.0-35.0) g/dl RDW 13.2 (11.0-16.0) % Plt Count 374 (160-400) X10*3/uL MPV 9.9 (9.4-12.3) fL Immature Gran % (Auto) 0.6 H (0.0-0.4) % Neut % (Auto) 66.2 (45-73) % Lymph % (Auto) 24.9 (20-40) % Ogle % (Auto) 6.9 (2-11) % Eos % (Auto) 0.9 (0-4) % Baso % (Auto) 0.5 (0-2) % Lymph # (Auto) 2.0 (1.2-4.9) X10*3/uL Ogle # (Auto) 0.6 (0.1-1.2) X10*3/uL Eos # (Auto) 0.1 (0.0-0.4) X10*3/uL Baso # (Auto) 0.0 (0.0-0.2) X10*3/uL Abs Immat Gran (auto) 0.05 H (0.00-0.03) X10*3/uL Absolute Neuts (auto) 5.3 (2.0-8.3) x10*3/uL Absolute Nucleated RBC 0.000 (0.0-0.012) X10*3/uL Nucleated RBC % (auto) 0.0 (0.0-0.2) /100WBC Sodium (135-145) mmol/L Potassium (3.3-5.1) mmol/L Chloride (96-108) mmol/L Carbon Dioxide (22-29) mmol/L Anion Gap (12-20) BUN (9-16) mg/dL Creatinine (0.5-1.4) mg/dL Estim Creat Clear Calc Estimated GFR Random Glucose (60-115) mg/dL Calcium (8.4-10.2) mg/dL Urine Color Yellow Urine Appearance Clear Urine pH 6.0 (5.0-9.0) Ur Specific Dutton >= 1.030 H (1.005-1.025) Urine Protein Trace (Neg-Trace) mg/dL Urine Glucose (UA) Negative (Negative) mg/dL Urine Ketones >=80 (Negative) mg/dL Urine Blood Negative (Negative) Urine Nitrite Negative (Negative) Ur Leukocyte Esterase Negative (Negative) Urine Test NEGATIVE (NEGATIVE) COVID-19 ([facility]) (Negative) COVID-19 Clin Com 01/17/22 01/17/22 Range/Units 17:05 18:24 WBC (4.8-10.8) X10*3/uL RBC (4.20-5.50) X10*6/uL Hgb (12.0-16.0) g/dl Hct (37.0-47.0) % MCV (80.0-98.0) fL MCH (27.0-33.0) pg MCHC (31.0-35.0) g/dl RDW (11.0-16.0) % Plt Count (160-400) X10*3/uL MPV (9.4-12.3) fL Immature Gran % (Auto) (0.0-0.4) % Neut % (Auto) (45-73) % Lymph % (Auto) (20-40) % Ogle % (Auto) (2-11) % Eos % (Auto) (0-4) % Baso % (Auto) (0-2) % Lymph # (Auto) (1.2-4.9) X10*3/uL Ogle # (Auto) (0.1-1.2) X10*3/uL Eos # (Auto) (0.0-0.4) X10*3/uL Baso # (Auto) (0.0-0.2) X10*3/uL Abs Immat Gran (auto) (0.00-0.03) X10*3/uL Absolute Neuts (auto) (2.0-8.3) x10*3/uL Absolute Nucleated RBC (0.0-0.012) X10*3/uL Nucleated RBC % (auto) (0.0-0.2) /100WBC Sodium 141 (135-145) mmol/L Potassium 4.0 (3.3-5.1) mmol/L Chloride 105 (96-108) mmol/L Carbon Dioxide 22 (22-29) mmol/L Anion Gap 18 (12-20) BUN 11 (9-16) mg/dL Creatinine 0.93 (0.5-1.4) mg/dL Estim Creat Clear Calc 85.6 Estimated GFR > 60 Random Glucose 102 (60-115) mg/dL Calcium 9.4 D (8.4-10.2) mg/dL Urine Color Urine Appearance Urine pH (5.0-9.0) Ur Specific Dutton (1.005-1.025) Urine Protein (Neg-Trace) mg/dL Urine Glucose (UA) (Negative) mg/dL Urine Ketones (Negative) mg/dL Urine Blood (Negative) Urine Nitrite (Negative) Ur Leukocyte Esterase (Negative) Urine Test (NEGATIVE) COVID-19 ([facility]) Negative (Negative) COVID-19 Clin Com See Note Discharge Plan Discharge Clinical Impression: Viral illness Patient Disposition: Home, Self-Care Instructions: Viral Syndrome (ED) Additional Instructions: Follow up with your primary care provider. Return to the emergency department immediately if your symptoms worsen or if you develop any dizziness, shortness of breath, difficulty breathing, chest pain, blurry vision, loss of vision, nausea, vomiting, abdominal pain, fever, chills, back pain, or any other complaints. Prescriptions: No Action metronidazole [Metrogel Vaginal] 0.75 % gel 1 appful vaginal BEDTIME 5 Days Qty: 70 0RF atorvastatin 20 mg tablet 20 mg PO DAILY 90 Days Qty: 90 3RF albuterol sulfate 90 mcg/actuation HFA aerosol inhaler 2 inh inhalation QID PRN (Reason: shortness of breath or wheezing) Qty: 6.7 0RF docusate sodium [Colace] 100 mg capsule 100 mg PO BID Qty: 20 0RF sennosides [senna] 8.6 mg tablet 8.6 mg PO BEDTIME Qty: 14 0RF ondansetron 4 mg tablet,disintegrating 4 mg PO ONCE PRN (Reason: nausea and vomiting) Qty: 10 0RF fluconazole 150 mg tablet 150 mg PO ONCE 1 Days Qty: 1 0RF cholecalciferol (vitamin D3) 50 mcg (2,000 unit) capsule 50 mcg PO DAILY 90 Days Qty: 90 1RF metformin 500 mg tablet extended release 24 hr 500 mg PO BID 30 Days Qty: 60 6RF Referrals: Ivette Briones MD [Primary Care Provider] - Interventions: ED Discharge Assessment Last Done: 01/17/22 19:59 Discharge Date/Time: 01/17/22 19:58 Print Language: Mosotho
[2022-01-17 18:46] LABS: COVID-19 Test Negative (Negative)
== END 2022-01-17 19:58 | disposition home or self-care (01) ==
PROVIDERS: Physician Assistant Medical; Emergency Provider Emergency Medicine Emergency Medical Services; PCP Internal Medicine
DX: B34.9 Viral infection, unspecified (principal); Z20.822 Contact with and (suspected) exposure to COVID-19; M79.10 Myalgia, unspecified site; F17.210 Nicotine dependence, cigarettes, uncomplicated
CPT/HCPCS: 36415; 80048; 81003; 81025; 85025; 87635; 99282; 99283

== ENCOUNTER 2022-05-29 18:05 | Outpatient (REF) | payer MEDICARE, MEDICAID, SELFPAY ==
[2022-05-30 09:22] LABS: BV Int Neg Control Negative (Negative); BV Int Pos Control Positive (Positive)
== END 2022-05-29 18:06 | disposition home or self-care (01) ==
LOC: HO.LNP 18:05
PROVIDERS: Visit Provider Internal Medicine
DX: N76.0 Acute vaginitis (principal); B96.89 Other specified bacterial agents as the cause of diseases classified elsewhere
CPT/HCPCS: 87480; 87510; 87660

== ENCOUNTER 2022-06-04 14:22 | Outpatient (REF) | payer MEDICARE, MEDICAID, SELFPAY ==
[2022-06-04 18:49] LABS: CT PCR NOT DETECTED (Not Detect.); NG PCR NOT DETECTED (Not Detect.)
[2022-06-08 03:18] LABS: HPV mRNA E6/E7 rflx Not Detected (Not Detected)
== END 2022-06-04 14:23 | disposition home or self-care (01) ==
LOC: HO.LNP 14:22
PROVIDERS: PCP Internal Medicine; Visit Provider Advanced Practice Midwife
DX: Z01.419 Encounter for gynecological examination (general) (routine) without abnormal findings (principal); Z11.51 Encounter for screening for human papillomavirus (HPV)
CPT/HCPCS: 0353U; 87624; 88142

== ENCOUNTER 2023-03-18 17:28 | Outpatient (AMB) | payer MEDICARE, MEDICAID, SELFPAY ==
[2023-03-18 17:34] VITALS: BP 112/82; PULSE 102; O2SAT 99; BMI 36.8
--- NOTE | 2023-03-18 17:34 | A.OFFPC_ITS ---
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 Accompanied by: Self / Same As Patient Allergies No Known Allergies Allergy (Verified 03/18/23 17:44) Medication List - Last Reconciled 03/18/23 by Ivette Langston MD albuterol sulfate 90 mcg/actuation 2 inhalations inhalation QID PRN atorvastatin 20 mg PO DAILY 90 days cholecalciferol (vitamin D3) 50 mcg PO DAILY 90 days docusate sodium (Colace) 100 mg PO BID medroxyprogesterone (Provera) 10 mg PO DAILY 10 days metformin ER 500 mg PO BID 30 days sennosides (senna) 8.6 mg PO BEDTIME Tobacco use date assessed: 03/18/23 Dental Screening Dental Screen Date: 03/18/23 Did you have a dental visit in the last 12 months?: Yes Did you have a dental problem in the last 6 months where you did not have access to dental care?: No Was dental information given to patient?: Patient has dentist HPI HPI Comments History of Present Illness Details This is a 32-year-old female that comes for her physical exam. Pap smear was done May 2022 and was normal with negative HPV. Complains of occasional chest pain associated with cough and nasal congestion that started 2 days ago. FORMERLY [facility] Medical History Hyperandrogenism Pure hypercholesterolemia Potential exposure to STD Obesity (BMI 30-39.9) Vitamin D deficiency Prediabetes Depression PTSD (post-traumatic stress disorder) PCOS (polycystic ovarian syndrome) Surgical History No history of previous surgery Family History Mother Diabetes mellitus Substance use disorder Mental health disorder Father No problems noted. Brother Asthma Brother No problems noted. Brother No problems noted. Social History Housing: Apartment Alcohol intake: former Patient Tobacco Use Status: Former Tobacco user Tobacco use type: Cigarette Cigarettes Per Day: 2 Years Smoked: 15 Packs per year/per ci.50 e-Cigarette/Vaping Use: Never Used Second Hand Smoke Exposure: No service: No Current occupational status: unemployed Gender identity: Female Cognitive needs: No Hearing needs: No Vision needs: Yes Female Reproductive History Menstrual Age of Menarche: 12 Questionnaire PHQ-9 Over the last 2 weeks, how often have you been bothered by any of the following problems? 1. Little interest or pleasure in doing things: not at all 2. Feeling down, depressed, or hopeless: not at all 3. Trouble falling or staying asleep, or sleeping too much: not at all 4. Feeling tired or having little energy: not at all 5. Poor appetite or overeating: not at all 6. Feeling bad about yourself - or that you are a failure or have let yourself or your family down: not at all 7. Trouble concentrating on things, such as reading the newspaper or watching television: not at all 8. Moving or speaking so slowly that other people could have noticed. Or the opposite - being so fidgety or restless that you have been moving around a lot more than usual: not at all 9. Thoughts that you would be better off or of hurting yourself in some way: not at all Total score: 0 Depression Screening Interpretation: Negative Depression Screening Done: Yes 44806 - PHQ-9 Billing: Yes Source: Developed by Drs. Shantanu Weber, Charline Shipley, Nilton Osei and colleagues, with an educational didi from [employer]. Thrive Questionnaire Date Thrive assessed: 03/18/23 I am a: Patient What is your living situation today?: I have a steady place to live Within the past 12 months, did the food you bought not last and you didn't have the money to get more?: Never true Within the past 12 months, did you worry whether your food would run out before you got money to buy more?: Never true Do you have trouble paying for medicines?: No Do you have trouble getting transportation to medical appointments?: No Do you have trouble paying your heating and electricity bill?: No Do you have trouble taking care of your child, family member or friend?: No Do you have trouble with day-to-day activities such as bathing, preparing meals, shopping, managing finances, etc.?: No Are you currently unemployed and looking for a job?: No Are you interested in more education?: No Please select the resources that you would like help with: None Currently or been in a relationship where the following occur: no concerns reported AUDIT C Alcohol Use Questionnaire (AUDIT-C) 1. How often do you have a drink containing alcohol?: Never Total Score: 0 JERRY-7 AMB Questionnaire JERRY-7 Date JERRY - 7 assessed: 03/18/23 Feeling nervous, anxious, or on edge: 1 = Several days Not being able to stop or control worryin = Not at all Worrying too much about different things: 0 = Not at all Trouble relaxin = Not at all Being so restless that it is hard to sit still: 0 = Not at all Becoming easily annoyed or irritable: 0 = Not at all Feeling afraid as if something awful might happen: 0 = Not at all Total JERRY-7 score (0-4 normal; 5-9 mild; 10-14 moderate; 15-21 severe): 1 Source: Developed by Drs. Shantanu Weber, Charline Shipley, Nilton Osei and colleagues, with an educational didi from [employer]. JERRY-7 Assessment Billing JERRY-7 Assessment Tool: JERRY-7 Assessment 51606 Review of Systems Const All systems reviewed & are unremarkable except as noted in HPI and below Eyes Reports no additional complaints, Denies change in vision and Denies other visual disturbances Card Denies chest pain at rest, Denies chest pain with activity, Denies edema, Denies irregular heart rhythm, Denies claudication, Denies dyspnea, Denies dyspnea on exertion, Denies orthopnea, Denies paroxysmal nocturnal dyspnea and Denies slow heart rate Resp Denies cough, Denies dyspnea and Denies dyspnea on exertion GI Denies abdominal pain, Denies change in bowel habits, Denies excessive flatus, Denies nausea and Denies vomiting Denies urinary incontinence, Denies urinary hesitancy and Denies urinary urgency Musc Denies abnormal gait, Denies atrophy, Denies deformity and Denies limited range of motion Skin/Breast Denies bleeding lesions, Denies changing lesions and Denies rash Neuro Denies abnormal gait and Denies lack of coordination Physical exam (Primary Care) Vital Signs: Last Vital Signs Pulse 102 H 03/18/23 17:34 BP 112/82 03/18/23 17:34 Pulse Ox 99 03/18/23 17:34 Oxygen Delivery Method Room Air 03/18/23 17:34 BMI result Body Mass Index 36.8 Tobacco/Smoking Status: Tobacco use Status Tobacco use date assessed 03/18/23 03/18/23 17:38 Patient Tobacco Use Status Former Tobacco user 03/18/23 17:38 Tobacco use type Cigarette 03/18/23 17:38 e-Cigarette/Vaping Use Never Used 03/18/23 17:38 PHQ-9: PHQ-9 Score PHQ-9: Total score 0 03/18/23 17:53 Depression Screening Interpretation: Negative Thrive Assessment: Date of Thrive Assessment Date Thrive assessed 03/18/23 03/18/23 17:38 Currently or been in a relationship where the following occur: no concerns reported Const Orientation/consciousness: patient oriented x3 HENSD Head: Yes normal to inspection, Yes normocephalic and Yes atraumatic Ears: external ears normal Eyes General: appearance normal, both eyes and all related structures Eyelids: Yes eyelids normal Conjunctivae: conjunctivae normal Neck Neck: Yes normal visual inspection and Yes supple Resp Effort & Inspection: normal respiratory effort Auscultation: clear to auscultation bilaterally Cardio Jugular venous distension: no JVD Rate: regular rate Rhythm: regular rhythm Heart sounds: S1 normal heart sound present and S2 normal heart sound present GI Inspection: Yes normal to inspection Palpation (GI): Soft to palpation and nontender Auscultation: normal bowel sounds Skin General skin exam: no rashes or lesions noted Neuro General: patient oriented x3 and no focal motor deficits Extrem General: Yes full ROM Psych Appearance: grossly normal Office Procedures Flu Questionnaire Does the patient have a severe egg allergy?: No Does the patient have severe life threatening allergies?: No Does the patient have a fever or illness today?: No Has the patient ever had Guillain-[place] Syndrome?: No Has the patient ever had any past reaction to a flu shot?: No Immunizations flu vacc [id number] 6mos up(PF) 60 mcg(15 mcgx4)/0.5 mL IM syringe Performing Provider: Ivette Langston MD [facility] Administered by: KURT Coyne on 03/18/23 17:57 Dose Route Admin Location Dispensed Lot Number Expiration Date [employer] 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 Panel Fast 03/18/23 R73.03 - Prediabetes Influenza [id number] Immunization 03/18/23 Z23 - Encounter for immunization Rubeola IgG (Measles) 03/18/23 Z23 - Encounter for immunization Varicella IgG Antibody 03/18/23 Z23 - Encounter for immunization SARS-CoV2/FLU/RSV 03/18/23 R09.89 - Other specified symptoms and signs involving the circulatory and respiratory systems Lipid Panel 03/18/23 E78.5 - Hyperlipidemia, unspecified T Spot TB 03/18/23 Z11.1 - Encounter for screening for respiratory tuberculosis Rubella IgG Antibody 03/18/23 Z23 - Encounter for immunization Mumps Virus IgG Antibody 03/18/23 Z23 - Encounter for immunization Hepatitis B Profile 03/18/23 Z23 - Encounter for immunization Coding Level of Care Code Est Pt Prev Care 18-39y(95132) Diagnoses Physical exam Z00.00 Additional Codes JERRY-7 Assessment Billing - JERRY-7 Assessment Tool: JERRY-7 Assessment 70266 ([id number]) Time Spent (min) 31
== END 2023-03-18 17:56 | disposition home or self-care (01) ==
LOC: HO.HMGH 17:28
PROVIDERS: PCP Internal Medicine; Visit Provider Internal Medicine
DX: Z23 Encounter for immunization (principal)
CPT/HCPCS: 90471; 90686; 99395

== ENCOUNTER 2023-03-20 07:31 | Outpatient (REF) | payer MEDICARE, MEDICAID, SELFPAY ==
[2023-03-20 08:29] LABS: Alanine Aminotransferase 43 U/L (0-31); Albumin Level 4.5 g/dL (3.5-5.0); Alkaline Phosphatase 67 U/L (39-117); Anion Gap 13 (12-20); Aspartate Amino Transferase 20 U/L (5-31); Bilirubin Total 0.4 mg/dL (0.0-1.0); Blood Urea Nitrogen 9 mg/dL (9-16); Calcium 9.8 mg/dL (8.4-10.2); Carbon Dioxide 26 mmol/L (22-29); Chloride 106 mmol/L (96-108); Cholesterol 298 mg/dL (<200); Estimated Glomerular Filt Rate > 60; Glucose Fasting 147 mg/dL (60-99); HDL Cholesterol 37 mg/dL (>40); LDL Cholesterol Calculated 197 mg/dL (<100); Sodium 141 mmol/L (135-145); Total Protein 8.2 g/dL (6.5-8.0); Triglycerides 323 mg/dL (<150)
[2023-03-20 08:48] LABS: HBS Num1 0.57 mIU/mL (0-7.99); HBc Num1 0.07 S/CO (0.00-0.79); Hepatitis B Core Antibody Nonreactive (Nonreactive); Hepatitis B Surface Antigen Negative (Negative); ~Hepatitis B Surface Antibody NONREACTIVE (Nonreactive)
[2023-03-20 09:57] LABS: Influenza A PCR NEGATIVE (Negative); Influenza B PCR NEGATIVE (Negative); Resp Syncy Virus RNA Qual PCR NEGATIVE (Negative); SARS COV2 PCR INHOUSE NEGATIVE (Negative)
[2023-03-21 09:09] LABS: Rubella IgG Antibody 2.94 Index
[2023-03-22 22:54] LABS: TS Negative Control Passed; TS Panel A 0; TS Panel B 1; TS Positive Control Passed; TSpotTB Negative (Negative)
== END 2023-03-20 07:32 | disposition home or self-care (01) ==
LOC: HO.LAB 07:31
PROVIDERS: PCP Internal Medicine; Visit Provider Internal Medicine
DX: Z01.84 Encounter for antibody response examination (principal); Z11.1 Encounter for screening for respiratory tuberculosis; Z11.52 Encounter for screening for COVID-19; E55.9 Vitamin D deficiency, unspecified; R73.03 Prediabetes; R09.89 Other specified symptoms and signs involving the circulatory and respiratory systems; E78.5 Hyperlipidemia, unspecified; Z20.822 Contact with and (suspected) exposure to COVID-19
CPT/HCPCS: 0241U; 80053; 80061; 82306; 86481; 86704; 86706; 86735; 86762; 86765; 86787; 87340